=== PATIENT | male | born 1955 | race Caucasian/White ===

== ENCOUNTER 2023-06-26 15:30 | Outpatient (REF) | payer MEDICARE, OTHER, SELFPAY ==
[2023-06-26 15:50] LABS: SARS-CoV-2 Ag POSITIVE (NEGATIVE)
== END 2023-06-26 15:31 | disposition home or self-care (01) ==
LOC: LAB 15:30
PROVIDERS: PCP Family Medicine
DX: U07.1 COVID-19 (principal); R05.1 Acute cough; R50.9 Fever, unspecified
CPT/HCPCS: 87811